=== PATIENT | female | born 1940 | race Caucasian/White ===

== ENCOUNTER → 2020-09-07 | Outpatient (CLI) | payer MEDICARE ==
[~2020-09-07] MED LIST: ALDACTONE 25MG25 MG PO; BACITRACIN3.5 GM OP; CENTRUM SILVER1 EAC1 PO; COLACE100 MG PO; COUMADIN2.5 MG PO; COUMADIN5 MG PO; DILTIAZEM 24HR120 M1 PO; FISH OIL 1,0001 EACH PO; GABAPENTIN600 MG PO; HYDRALAZINE HCL25 MG PO; ICAPS AREDS SO1 EACH PO; METOPROLOL TART25 MG PO; METOPROLOL TART50 MG PO; NORFLEX 100 MG100 MG PO; POTASSIUM CHLO10 ME2 PO; SYNTHROID100 MCG PO; SYSTANE 0.3-0.415 ML EYEBOTH; TESSALON PERLE100 MG PO; TORSEMIDE100 MG PO; VITAMIN D 11000 UNIT PO; Voltaren Gel 1% TOP
[2020-09-08 12:14] LABS: CREATININE, URINE 84.9 mg/dL (Not Estab.)
== END ==
LOC: LAB 09:55
PROVIDERS: Internal Medicine Nephrology
DX: N18.9 Chronic kidney disease, unspecified (principal)
CPT/HCPCS: 36415; 80053; 81001; 82043; 82570; 84156

== ENCOUNTER → 2021-02-17 | Outpatient (CLI) | payer MEDICARE ==
[~2021-02-17] MED LIST changes: +CARDIZEM CD240 MG PO
[2021-02-18 09:15] LABS: CREATININE, URINE 80.2 mg/dL (Not Estab.)
== END ==
LOC: LAB 10:29
PROVIDERS: Internal Medicine Nephrology
DX: I48.91 Unspecified atrial fibrillation (principal); R60.9 Edema, unspecified; R06.02 Shortness of breath; N18.9 Chronic kidney disease, unspecified
CPT/HCPCS: 80053; 81001; 82043; 82570; 83880; 84156

== ENCOUNTER 2021-02-22 11:33 | Emergency (ER) | payer MEDICARE ==
[~2021-02-22 11:33] MED LIST changes: -CARDIZEM CD240 MG PO
[2021-02-22 12:38] LABS: HEMOGLOBIN 15.2 gm/dl (12.3-15.3); RED BLOOD COUNT 4.96 M/UL (4.00-5.10); WHITE BLOOD COUNT 7.5 K/UL (4.5-11.0)
[2021-02-22 13:20] LABS: BUN/CREATININE RATIO 21 (0-10)
[2021-02-22] MEDS ORDERED: CARDIZEM CD240 MG PO (18:15)
== END 2021-02-22 18:50 | disposition home or self-care (01) ==
LOC: ER1 11:33
PROVIDERS: Physician Assistant
DX: I48.91 Unspecified atrial fibrillation (principal); I10 Essential (primary) hypertension; E03.9 Hypothyroidism, unspecified; R06.02 Shortness of breath; Z90.710 Acquired absence of both cervix and uterus; Z90.49 Acquired absence of other specified parts of digestive tract
CPT/HCPCS: 71045; 80053; 82550; 82553; 83874; 83880; 84439; 84443; 84484; 85025; 85610; 93005; 99285

== ENCOUNTER → 2021-02-23 | Outpatient (CLI) | payer MEDICARE ==
[~2021-02-23] MED LIST changes: +CARDIZEM CD240 MG PO
== END ==
LOC: RT 12:45
DX: I48.20 Chronic atrial fibrillation, unspecified (principal)

== ENCOUNTER → 2021-07-26 | Outpatient (CLI) | payer MEDICARE ==
[2021-07-27 08:13] LABS: CREATININE, URINE 129.3 mg/dL (Not Estab.)
== END ==
LOC: LAB 10:00
PROVIDERS: Internal Medicine Nephrology
DX: N18.9 Chronic kidney disease, unspecified (principal); M10.9 Gout, unspecified
CPT/HCPCS: 36415; 80053; 81001; 82043; 82570; 84156; 84550

== ENCOUNTER → 2022-01-19 | Outpatient (CLI) | payer MEDICARE ==
[2022-01-20 10:14] LABS: CREATININE, URINE 62.5 mg/dL (Not Estab.)
== END ==
LOC: LAB 08:31
PROVIDERS: Internal Medicine Nephrology
DX: N18.9 Chronic kidney disease, unspecified (principal)
CPT/HCPCS: 36415; 80053; 81001; 82043; 82570; 84156